=== PATIENT | male | born 1955 | race Caucasian/White ===

== ENCOUNTER → 2016-05-11 | Outpatient (CLI) | payer BC ==
[~2016-05-11] MED LIST: LISI-786 PO; OPTIRAY 320 IV PRN; SIMV10TA2 PO
--- NOTE | 2016-05-11 11:01 | DIAGNOSTIC IMAGING REPORT ---
CT OF THE CHEST WITH IV CONTRAST CLINICAL HISTORY: Renal cell carcinoma COMPARISON STUDY: 09/28/2015 TECHNIQUE: Following the IV administration of 116 mL of Optiray-320, CT of the thorax was performed from the thoracic inlet to the lung bases. Images are reviewed in the axial, sagittal, and coronal planes. IV contrast was administered without complication. CT DOSE: 1368.68 mGy.cm FINDINGS: Thyroid: Imaged portions of the thyroid gland are normal in appearance. Thoracic aorta: The thoracic aorta is normal in course and caliber, noting standard 3-vessel arch anatomy. No aneurysm or dissection is seen. Pulmonary vasculature: The pulmonary trunk is normal in caliber. There are no central filling defects identified to suggest pulmonary embolus. Note that this examination was not protocoled for the evaluation of pulmonary emboli. HEART: The heart is normal in size and configuration, without pericardial effusion. Lungs and pleural spaces: There are postsurgical changes within the right lower lobe. There are mild dependent atelectatic changes present. There is a 3 mm right middle lobe pulmonary nodule as visualized in image #149/326. This remain stable. There is a 3 mm right upper lobe pulmonary nodule as visualized on image #1 6/326. This remain stable. There is a 3 mm pulmonary nodule within the lingula as visualized in image #184/326. This remain stable. There is a new pancake-shaped 10 mm nodule within the lingula as visualized in image #217/326. Close follow-up is recommended to differentiate a neoplastic nodule from focal atelectasis. Mediastinum: There is no mediastinal lymphadenopathy. Lily: There is no evidence of pathologic hilar lymphadenopathy Axilla: Clear. Upper abdomen: There is a complex partially cystic 21 mm right renal opacity. This likely relates to the patient's previously resected neoplasm. This will be discussed on the dedicated CT scan of the abdomen and pelvis Skeletal structures: There are no lytic or blastic osseous lesions. IMPRESSION: 1. No evidence of pathologic adenopathy 2. Postsurgical changes in the right lower lobe 3. Multiple bilateral subcentimeter pulmonary nodules. These remain stable with the exception of a new pancake shaped 10 mm nodule within the base of the lingula. Close follow-up is recommended to differentiate a neoplastic nodule from focal atelectasis Electronically signed by: Myles Luna M.D. 05/11/2016 10:59 AM
--- NOTE | 2016-05-11 15:40 | DIAGNOSTIC IMAGING REPORT ---
CT OF THE ABDOMEN AND PELVIS WITH AND WITHOUT CONTRAST RENAL PROTOCOL CLINICAL HISTORY: Renal cell carcinoma. COMPARISON STUDY: CT of the abdomen and pelvis September 28, 2015. TECHNIQUE: Unenhanced, nephrographic and delayed phase imaging was performed. Injection of 116 cc of Optiray 320 IV was uneventful. FINDINGS: The chest will be reported separately. The liver, spleen, adrenal glands and pancreas are unremarkable. Postsurgical findings within the midpole of the right kidney suggestive of a partial nephrectomy are noted. Nonenhancing material within the operative bed has slightly diminished since prior exam. No enhancement is identified to suggest residual or recurrent tumor at this site. There are numerous bilateral renal lesions. These likely reflect cysts. A few lesions are too small to characterize. A 1.6 cm lesion within the midpole of the left kidney demonstrates no significant enhancement and is therefore benign. There is no hydronephrosis. No abdominal or pelvic lymphadenopathy is present. There are no suspicious skeletal lesions. Caliber and wall thickness of small and large bowel are normal. IMPRESSION: 1. No evidence of residual or recurrent malignancy status post partial right nephrectomy. 2. Multiple bilateral renal lesions. These likely reflect cysts although a few subcentimeter lesions are too small to characterize. Electronically signed by: Ej Jerez M.D. 05/11/2016 3:38 PM
== END | disposition home or self-care (01) ==
LOC: C.CTS 09:39
PROVIDERS: ATTEND Urology
DX: C64.9 Malignant neoplasm of unspecified kidney, except renal pelvis (principal)

== ENCOUNTER → 2016-08-09 | Outpatient (CLI) | payer BC ==
--- NOTE | 2016-08-09 08:43 | DIAGNOSTIC IMAGING REPORT ---
CHEST CT WITH CONTRAST CT DOSE: 305.31 mGy.cm HISTORY: Renal cell cancer. Follow-up pulmonary nodules. TECHNIQUE: Multiaxial CT images of the chest were performed following the intravenous administration of contrast. COMPARISON: Chest CT 05/11/2016. FINDINGS: The central airways are patent. No pleural effusions. No pneumothorax. Evidence for prior wedge resection within the right lower lobe. A few small linear densities adjacent to the right resection favor scarring. This is not significantly changed. Mild emphysema. Stable 3 mm nodule within the lingula on image 189. Stable 3 mm left lower lobe nodule on image 227 and stable 3 mm left lower lobe nodule on image 194. Stable 3 mm nodule within the right upper lobe on image 110 and within the right middle lobe on image 152. Stable 3 mm subpleural nodule within the right middle lobe on image 184. A 10 mm nodule within the lingula on the prior study has almost completely resolved and is consistent with resolving atelectasis. No new pulmonary nodules. No suspicious lytic or blastic osseous lesions. Old left postthoracotomy changes. No mediastinal or hilar lymphadenopathy. No hepatic or splenic masses. Normal adrenal glands. Partially visualized right renal abnormality which appears to be stable. This may be due to postoperative change. This is incompletely evaluated on this study. IMPRESSION: 1. The 10 mm lingular nodule seen on the prior study has essentially resolved. Therefore, this favors resolving atelectasis. 2. A few scattered subcentimeter indeterminate pulmonary nodules remain unchanged. Continued follow is recommended. 3. No new pulmonary nodules identified. 4. Postoperative as described above. Electronically signed by: Karl Mckeon M.D. 08/09/2016 8:41 AM Dictated Date/Time: 08/09/2016 8:32 AM
== END | disposition home or self-care (01) ==
LOC: C.CTS 06:38
PROVIDERS: ATTEND Nurse Practitioner Family
DX: C64.1 Malignant neoplasm of right kidney, except renal pelvis (principal)

== ENCOUNTER → 2017-01-25 | Outpatient (CLI) | payer BC ==
[2017-01-25 10:43] LABS: ALT/SGPT 28 U/L (12-78); BLOOD UREA NITROGEN 21 mg/dl (7-18); BUN/CREATININE RATIO 17.5 (10-20); CALCIUM 9.6 mg/dl (8.5-10.1); CARBON DIOXIDE 31 mmol/L (21-32); CHLORIDE 104 mmol/L (98-107); CHOLESTEROL 174 mg/dl (0-200); GLUCOSE 100 mg/dl (70-99); POTASSIUM 3.6 mmol/L (3.5-5.1); SODIUM 140 mmol/L (136-145)
[2017-01-25 10:46] LABS: ALB/GLOB RATIO 1.2 (0.9-2); ALKALINE PHOSPHATASE 49 U/L (45-117); AST/SGOT 16 U/L (15-37); CHOLESTEROL/HDL RATIO 3.6; HDL CHOLESTEROL 49 mg/dl; LDL CHOLESTEROL CALCULATED 104 mg/dl; TRIGLYCERIDES 104 mg/dl (0-150); VERY LOW DENSITY LIPOPROT CALC 21 mg/dl
--- NOTE | 2017-01-25 12:12 | DIAGNOSTIC IMAGING REPORT ---
(CHEST) THORAX WITH CLINICAL HISTORY: 61 years-old Male presenting with RENAL CELL CANCER, partial right nephrectomy. TECHNIQUE: Multidetector CT imaging of the chest was performed after the administration of intravenous contrast. IV contrast: 95 mL of Optiray 320. A dose lowering technique was used consistent with the principles of ALARA (as low as reasonably achievable). COMPARISON: 08/09/2016. CT DOSE (mGy.cm): The estimated cumulative dose is 1185.72 mGycm. FINDINGS: [employer] Clerk topogram: Unremarkable. On soft tissue windows, normal thyroid and thoracic inlet. Few small hilar lymph nodes, likely reactive. No pathologically enlarged lymph nodes. Mild atherosclerosis of aortic arch. Normal heart size. No pericardial or pleural effusion. 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 On lung windows, postsurgical changes of wedge resection in the superior segment of the right lower lobe, unchanged. Minimal bandlike opacities at the lung bases likely atelectasis or scarring. No new pulmonary nodule. Airways patent. Multiple previously noted nodules index below: -Stable solid 3 mm lingular nodule (series 4 image 181). -Stable solid 3 mm left lower lobe nodule (series 4 image 209). -Stable solid 3 mm left lower lobe nodule (series 4 image 186). -Stable solid 3 mm right upper lobe nodule (series 4 image 104). -Stable solid triangular 3 mm right middle lobe nodule (series 4 image 147). -Stable solid 3 mm subpleural right middle lobe nodule (series 4 image 181). On bone windows, degenerative changes of the spine. IMPRESSION: 1. Stable bilateral solid pulmonary nodules measuring up to 3 mm. These have been stable since 09/28/2015. No further follow-up is warranted per [employer] Society 2017 recommendations below. 2. No new pulmonary nodule. No acute intrathoracic pathology. Please refer to below summary of Fleischner Society 2017 recommendations for follow-up of incidental CT nodules (H Ayala et al. Guidelines for management of incidental pulmonary nodules detected on CT images: From the Fleischner Society 2017. Radiology 2017; 284: 228-243.) SOLID NODULES Single nodule; size < 6 mm * Low risk patients: No routine follow-up * High risk patients: Optional CT at 12 months Single nodule; size 6-8 mm * Low risk patients: CT at 6-12 months, then consider CT at 18-24 months * High risk patients: CT at 6-12 months, then at 18-24 months Single nodule; size > 8 mm * Either low or high risk patients: Considered CT at 3 months, PET/CT, or tissue sampling Multiple nodules; size < 6 mm * Low risk patients: No routine follow up * High risk patients: Optional CT at 12 months Multiple nodules; size 6-8 mm * Low risk patients: CT at 3-6 months, then consider CT at 18-24 months * High risk patients: CT at 3-6 months, then at 18-24 months Multiple nodules; size > 8 mm * Low risk patients: CT at 3-6 months, then consider at 18-24 months * High risk patients: CT at 3-6 months, then at 18-24 months Note: These guidelines apply to incidental nodules. These guidelines do not apply to patients younger than 35 years, immunocompromised patients, or patients with cancer. * Low risk patients: Minimal or absent history of smoking and/or other known risk factors * High risk patients: History of smoking, exposure to other carcinogens, emphysema, fibrosis, upper lobe location, family history of lung cancer, etc. * If a nodule up to 8 mm is partly solid or is ground glass, further follow-up is required after 24 months to exclude possible slow growing adenocarcinoma. SUBSOLID NODULES Single ground-glass nodule * Nodule size < 6 mm: No routine follow-up * Nodule size > or = 6 mm: CT at 6-12 months to confirm persistence, then CT every 2 years until 5 years Single part-solid nodule * Nodule size < 6 mm: No routine follow-up * Nodules size > or = 6 mm: CT at 3-6 months to confirm persistence. If unchanged and solid component remains < 6 mm, annual CT should be performed for 5 years Multiple nodules * Nodule size < 6 mm: CT at 3-6 months. If stable, consider CT at 2 and 4 years. * Nodules size > or = 6 mm: CT at 3-6 months. Subsequent management based on the most suspicious nodule(s) Electronically signed by: Ronnie Hernandez M.D. 01/25/2017 12:11 PM Dictated Date/Time: 01/25/2017 12:01 PM
--- NOTE | 2017-01-25 12:14 | DIAGNOSTIC IMAGING REPORT ---
ABD/PELVIS IV AND ORAL CONT CT DOSE: HISTORY: Renal cell carcinoma RENAL CELL CANCER TECHNIQUE: Multiaxial CT images of the abdomen and pelvis were performed following the use of intravenous and oral contrast. A dose lowering technique was utilized adhering to the principles of ALARA. COMPARISON STUDY: 05/11/2016 FINDINGS: The lung bases are clear. The liver, spleen, gallbladder, pancreas, kidneys, and adrenal glands are within normal limits. No bowel wall thickening or obstruction. The pelvic organs are unremarkable. No suspicious lytic or blastic osseous lesions. Stable postoperative changes mid pole right kidney laterally. Stable subcentimeter nodular densities bilaterally statistically suggestive of small cysts. These again are unchanged. No significant abdominal pelvic or inguinal adenopathy. Bowel pattern overall is nonobstructive. Bladder is midline. Inguinal regions are unremarkable. IMPRESSION: 1. Stable postprocedural change right kidney. 2. Stable subcentimeter cysts throughout both kidneys. 3. Otherwise negative abdomen and pelvis. 4. No change from the prior exam. The above report was generated using voice recognition software. It may contain grammatical, syntax or spelling errors. Electronically signed by: Ryder Falcon M.D. 01/25/2017 12:13 PM Dictated Date/Time: 01/25/2017 12:08 PM
== END | disposition home or self-care (01) ==
LOC: C.CTS 09:34
PROVIDERS: ATTEND Internal Medicine Hematology & Oncology
DX: C64.1 Malignant neoplasm of right kidney, except renal pelvis (principal)

== ENCOUNTER → 2017-02-15 | Outpatient (CLI) | payer BC ==
[~2017-02-15] MED LIST changes: -OPTIRAY 320 IV PRN
[2017-02-15 17:59] LABS: BASO % 0.4 %; BASO ABS # 0.02 K/uL (0-0.2); COMPLETE YES; EOS % 2.4 %; HEMATOCRIT 44.4 % (42-52); IG% 0.2 %; LYMPH % 31.9 %; LYMPH ABS # 1.72 K/uL (1.2-3.4); MEAN CELL VOLUME 89.7 fL (80-100); MEAN CORPUSCULAR HEMOGLOBIN 29.9 pg (25-34); MEAN CORPUSCULAR HGB CONC 33.3 g/dl (32-36); MEAN PLATELET VOLUME 10.6 fL (7.4-10.4); MONO % 9.3 %; NEUT % 55.8 %; PLATELET COUNT 229 K/uL (130-400); RED BLOOD COUNT 4.95 M/uL (4.7-6.1)
[2017-02-15 18:51] LABS: ALT/SGPT 30 U/L (12-78); AST/SGOT 15 U/L (15-37); BLOOD UREA NITROGEN 17 mg/dl (7-18); BUN/CREATININE RATIO 13.4 (10-20); CALCIUM 8.8 mg/dl (8.5-10.1); CARBON DIOXIDE 26 mmol/L (21-32); CHLORIDE 106 mmol/L (98-107); GLUCOSE 99 mg/dl (70-99); POTASSIUM 3.5 mmol/L (3.5-5.1); SODIUM 140 mmol/L (136-145)
[2017-02-15 18:55] LABS: ALB/GLOB RATIO 1.1 (0.9-2); ALKALINE PHOSPHATASE 49 U/L (45-117); PROSTATE SPECIFIC ANTIGEN 0.702 ng/ml (0.000-4.000)
== END | disposition home or self-care (01) ==
LOC: C.LABMFLN 11:46
PROVIDERS: ATTEND Internal Medicine Hematology & Oncology
DX: C64.1 Malignant neoplasm of right kidney, except renal pelvis (principal)

== ENCOUNTER → 2017-05-30 | Outpatient (CLI) | payer OTHER ==
[2017-05-30 17:58] LABS: BASO % 0.3 %; BASO ABS # 0.02 K/uL (0-0.2); EOS % 2.1 %; EOS ABS # 0.14 K/uL (0-0.5); HEMATOCRIT 43.8 % (42-52); IG# 0.01 K/uL (0.00-0.02); LYMPH % 35.9 %; LYMPH ABS # 2.41 K/uL (1.2-3.4); MEAN CELL VOLUME 88.8 fL (80-100); MEAN CORPUSCULAR HEMOGLOBIN 30.4 pg (25-34); MEAN CORPUSCULAR HGB CONC 34.2 g/dl (32-36); MEAN PLATELET VOLUME 10.7 fL (7.4-10.4); MONO % 6.7 %; MONO ABS # 0.45 K/uL (0.11-0.59); NEUT % 54.9 %; NEUT ABS # 3.69 K/uL (1.4-6.5); PLATELET COUNT 210 K/uL (130-400); RED CELL DISTRIBUTION WIDTH CV 13.5 % (11.5-14.5); RED CELL DISTRIBUTION WIDTH SD 43.6 fL (36.4-46.3); WHITE BLOOD COUNT 6.72 K/uL (4.8-10.8)
[2017-05-30 18:20] LABS: ALBUMIN 3.9 gm/dl (3.4-5.0); ALT/SGPT 42 U/L (12-78); AST/SGOT 16 U/L (15-37); BLOOD UREA NITROGEN 23 mg/dl (7-18); CALCIUM 8.8 mg/dl (8.5-10.1); CARBON DIOXIDE 28 mmol/L (21-32); CREATININE 1.21 mg/dl (0.60-1.40); GLUCOSE 94 mg/dl (70-99); POTASSIUM 3.8 mmol/L (3.5-5.1); SODIUM 139 mmol/L (136-145)
[2017-05-30 18:22] LABS: ALKALINE PHOSPHATASE 49 U/L (45-117); TOTAL PROTEIN 7.3 gm/dl (6.4-8.2)
== END | disposition home or self-care (01) ==
LOC: C.LABMFLN 15:38
PROVIDERS: ATTEND Internal Medicine Hematology & Oncology
DX: C64.1 Malignant neoplasm of right kidney, except renal pelvis (principal)

== ENCOUNTER → 2017-08-23 | Outpatient (CLI) | payer OTHER ==
[2017-08-23 14:36] LABS: BASO % 0.5 %; BASO ABS # 0.03 K/uL (0-0.2); EOS % 1.7 %; HEMATOCRIT 44.8 % (42-52); HEMOGLOBIN 15.3 g/dL (14.0-18.0); IG# 0.01 K/uL (0.00-0.02); LYMPH % 28.1 %; MEAN CELL VOLUME 88.5 fL (80-100); MEAN CORPUSCULAR HEMOGLOBIN 30.2 pg (25-34); MEAN CORPUSCULAR HGB CONC 34.2 g/dl (32-36); MEAN PLATELET VOLUME 10.5 fL (7.4-10.4); MONO % 6.1 %; MONO ABS # 0.37 K/uL (0.11-0.59); NEUT % 63.4 %; NEUT ABS # 3.83 K/uL (1.4-6.5); PLATELET COUNT 218 K/uL (130-400); RED CELL DISTRIBUTION WIDTH CV 13.6 % (11.5-14.5); RED CELL DISTRIBUTION WIDTH SD 43.6 fL (36.4-46.3); WHITE BLOOD COUNT 6.04 K/uL (4.8-10.8)
--- NOTE | 2017-08-23 14:41 | DIAGNOSTIC IMAGING REPORT ---
CHEST 2 VIEWS ROUTINE HISTORY: 62 years-old Male RENAL CELL CANCER follow-up study in a patient with renal cell carcinoma COMPARISON: Chest radiograph 12/30/2015, chest CT 01/25/2017 TECHNIQUE: PA and lateral views of the chest FINDINGS: Cardiac silhouette is within normal limits. Mild atherosclerosis of the aorta. Surgical suture material, likely from prior wedge resection is again noted within the right lower lobe with adjacent subsegmental pleural-parenchymal scarring. Mild right hemidiaphragmatic elevation. No pneumothorax, pleural effusion, focal airspace consolidation or overt pulmonary edema. Bones of the chest appear grossly intact. Degenerative changes are seen within the shoulders and spine. IMPRESSION: No acute process. The above report was generated using voice recognition software. It may contain grammatical, syntax or spelling errors. Electronically signed by: Ganesh Gutierrez M.D. 08/23/2017 2:39 PM Dictated Date/Time: 08/23/2017 2:38 PM
[2017-08-23 15:10] LABS: ALT/SGPT 39 U/L (12-78); AST/SGOT 17 U/L (15-37); BLOOD UREA NITROGEN 24 mg/dl (7-18); CALCIUM 9.1 mg/dl (8.5-10.1); CARBON DIOXIDE 27 mmol/L (21-32); GLUCOSE 92 mg/dl (70-99); POTASSIUM 3.6 mmol/L (3.5-5.1); SODIUM 137 mmol/L (136-145)
[2017-08-23 15:12] LABS: ALKALINE PHOSPHATASE 53 U/L (45-117); TOTAL PROTEIN 7.8 gm/dl (6.4-8.2)
== END | disposition home or self-care (01) ==
LOC: C.RAD 13:35
PROVIDERS: ATTEND Nurse Practitioner Family
DX: C64.1 Malignant neoplasm of right kidney, except renal pelvis (principal)